=== PATIENT | female | born 1955 | race Caucasian/White ===

== ENCOUNTER 2019-09-17 10:22 | Emergency (ER) | payer OTHER ==
[2019-09-17 11:01] VITALS: BP 96/61
--- NOTE | 2019-09-17 11:27 | ED ---
Respiratory - HPI Summary HPI Summary: 64 year old female presents with cough for the past 3 weeks. She states that it started with a cough and seemed to get better and then she got sinus congestion. She states then it became a cough again. Has had sinus congestion for at least past 10 days. She [place] been having worsening sinus pressure. She states the cough is productive. Has a history of asthma. Is nonsmoker. She admits to occasionally ear pain. Also admits to headache. - History of Current Complaint Chief Complaint: UCGeneralIllness Stated Complaint: COUGH Time Seen by Provider: 09/17/19 11:07 Pain Intensity: 1 - Allergy/Home Medications Allergies/Adverse Reactions: Allergies Allergy/AdvReac Type Severity Reaction Status Date / Time No Known Allergies Allergy Verified 09/17/19 10:54 Home Medications: Home Medications Cholecalciferol (Vitamin D3) [Vitamin D-3] 2,000 unit PO DAILY 09/17/19 [ History Confirmed 09/17/19] Multivit-Min/Iron/Folic Acid/K [Multi For Her Softgel] 1 each PO DAILY 09/17/19 [History Confirmed 09/17/19] PMH/Surg Hx/FS Hx/Imm Hx Endocrine/Hematology History: Denies: Hx Anticoagulant Therapy Respiratory History: Denies: Hx Asthma Infectious Disease History: No Infectious Disease History: Denies: Traveled Outside the [place] in Last 30 Days - Family History Known Family History: Positive: Non-Contributory - Social History Alcohol Use: Rare Substance Use Type: Reports: None Smoking Status (MU): Never Smoked Tobacco Review of Systems Negative: Fever Positive: Nasal Discharge Negative: Chest Pain Positive: Cough. Negative: Shortness Of Breath All Other Systems Reviewed And Are Negative: Yes Physical Exam Triage Information Reviewed: Yes Vital Signs On Initial Exam: Initial Vitals Temp Pulse Resp BP Pulse Ox 99.3 F 81 14 96/61 98 09/17/19 10:55 09/17/19 10:55 09/17/19 10:55 09/17/19 10:55 09/17/19 10:55 Vital Signs Reviewed: Yes Appearance: Positive: Well-Appearing Skin: Positive: Warm, Dry Head/Face: Positive: Normal Head/Face Inspection Eyes: Positive: Normal, EOMI, CHAITANYA, Conjunctiva Clear ENT: Positive: Pharynx normal, TMs normal, Sinus tenderness Neck: Positive: Supple, Nontender, No Lymphadenopathy Respiratory/Lung Sounds: Positive: Clear to Auscultation, Breath Sounds Present Cardiovascular: Positive: Normal, RRR Abdomen Description: Positive: Nontender, Soft Bowel Sounds: Positive: Present Musculoskeletal: Positive: Normal Neurological: Positive: Normal Psychiatric: Positive: Normal Diagnostics - Vital Signs Vital Signs Temp Pulse Resp BP Pulse Ox 09/17/19 10:55 99.3 F 81 14 96/61 98 - Laboratory Lab Statement: Any lab studies that have been ordered have been reviewed, and results considered in the medical decision making process. - Radiology chest Radiology Interpretation Completed By: Radiologist Summary of Radiographic Findings: #. Stigmata of probable obstructive lung disease. No acute pulmonary or cardiac process evident. Disposition - Course Course Of Treatment: 64 year old female presents with cough for the past 3 weeks. She states that it started with a cough and seemed to get better and then she got sinus congestion. She states then it became a cough again. Has had sinus congestion for at least past 10 days. She [place] been having worsening sinus pressure. She states the cough is productive. Has a history of asthma. Is nonsmoker. She admits to occasionally ear pain. Also admits to headache. On exam has sinus tenderness. Lungs congestion noted. Chest x-ray shows no pneumonia. will treat for sinus infection with augmentin. gave tessalon for cough. patient understand and agrees with plan. - Differential Dx - Cardiopulmonary Differential Diagnoses - Cardiopulmonary: Bronchitis, Lower Resp Infection, Sinusitis - Diagnoses Provider Diagnoses: Bronchitis, Sinusitis Discharge ED - Sign-Out/Discharge Documenting (check all that apply): Patient Departure All imaging exams completed and their final reports reviewed: Yes - Discharge Plan Condition: Good Disposition: HOME Prescriptions: Amoxicillin/Clavulanate TAB* [Augmentin TAB 875*] 875 mg PO BID #14 tab Benzonatate CAP* [Tessalon 100 MG CAP*] 100 mg PO TID #21 cap Patient Education Materials: Acute Bronchitis (ED) Referrals: Kimmy Sanders MD [Primary Care Provider] - Additional Instructions: Take antibiotic twice a day for 7 days take tessalon three times a day for cough Use saline spray in nose as much as needed Follow up with primary care physician within a week Return to with any new or worsening symptoms - Billing Disposition and Condition Condition: GOOD Disposition: Home
== END 2019-09-17 12:05 | disposition home or self-care (01) ==
LOC: UCEAST 10:22
DX: J45.909 Unspecified asthma, uncomplicated (principal); J32.9 Chronic sinusitis, unspecified
CPT/HCPCS: 71046; 99212; G0463